=== PATIENT | male | born 2005 | race Caucasian/White ===

== ENCOUNTER 2025-03-15 03:32 | Emergency (ER) | payer MEDICAID ==
[~2025-03-15] VITALS: Ht 175.3 cm; Wt 124.0 kg
[2025-03-15 03:33] VITALS: TEMP 36.8; O2SAT 95
[2025-03-15 04:17] LABS: BASOPHILS % 0.5 % (0.0-2.0); EOSINOPHILS % 0.6 % (0.0-5.0); HEMATOCRIT. 46.3 % (42.0-52.0); HEMOGLOBIN. 15.3 g/dL (14.0-18.0); LYMPHOCYTES % 25.5 % (20.0-50.0); MEAN CORPUSCULAR HEMOGLOBIN 27.8 pg (28.0-32.0); MEAN CORPUSCULAR VOLUME 84.1 fL (80.0-94.0); MEAN PLATELET VOLUME 9.4 fl (7.4-10.4); MONOCYTES % 11.1 % (2.0-8.0); NEUTROPHILS % 62.3 % (40.0-76.0); PLATELET 201 x1000/uL (130-400); RED BLOOD CELL COUNT 5.51 mill/uL (4.7-6.1); RED CELL DISTRIBUTION WIDTH 13.4 % (11.6-14.6); WHITE BLOOD COUNT 6.8 x1000/uL (4.5-11.0)
[2025-03-15 04:34] LABS: CHLORIDE 110 mEq/L (98-107); POTASSIUM 3.6 mEq/L (3.5-5.1); SODIUM 143 mEq/L (136-145)
[2025-03-15 04:35] LABS: CALCIUM 9.6 mg/dL (8.7-10.4); CARBON DIOXIDE 29 mEq/L (21-32)
[2025-03-15 04:40] LABS: CREATININE 0.9 mg/dL (0.6-1.3); GLUCOSE 110 mg/dL (70-105); UREA NITROGEN BLOOD 9 mg/dL (9-23)
[2025-03-15 04:42] LABS: ALANINE AMINOTRANSFERASE 64 IU/L (10-49); ALBUMIN 4.5 g/dL (3.2-4.8); ASPARTATE AMINOTRANSFERASE 27 IU/L (<34); BILIRUBIN DIRECT 0.2 mg/dL (<=3.0); BILIRUBIN TOTAL 0.4 mg/dL (0.1-1.0); PROTEIN TOTAL 7.2 g/dL (6.0-8.3)
[2025-03-15 04:59] LABS: CLARITY URINE CLEAR (CLEAR); COLOR URINE YELLOW (YELLOW); GLUCOSE URINE NEGATIVE (NEGATIVE); KETONES URINE TRACE (NEGATIVE); LEUKOCYTE ESTERASE URINE NEGATIVE (NEGATIVE); NITRITE URINE NEGATIVE (NEGATIVE); OCCULT BLOOD URINE NEGATIVE (NEGATIVE); PH URINE 6.5 (4.5-8.0); PROTEIN URINE NEGATIVE (NEGATIVE); SPECIFIC GRAVITY URINE 1.021 (1.005-1.030)
[2025-03-15 05:46] VITALS: BP 149/81; PULSE 85; RESP 18; O2SAT 96
== END 2025-03-15 06:23 | disposition home or self-care (01) ==
LOC: ER 03:32
DX: R10.32 Left lower quadrant pain (principal); Z88.5 Allergy status to narcotic agent
CPT/HCPCS: 36415; 80048; 80076; 81003; 85025; 99283

== ENCOUNTER 2025-04-08 21:02 | Emergency (ER) | payer MEDICAID ==
[~2025-04-08] VITALS: Ht 177.8 cm; Wt 135.0 kg
[2025-04-08 21:18] VITALS: BP 126/80; PULSE 102; RESP 16; TEMP 36.8; O2SAT 99
[2025-04-08] MEDS: ALPRAZOLAM 0.25 MG TABLET PO ONE (23:52)
== END 2025-04-09 00:02 | disposition home or self-care (01) ==
LOC: ER 21:02
DX: F41.9 Anxiety disorder, unspecified (principal); Z88.5 Allergy status to narcotic agent
CPT/HCPCS: 93005; 99283

== ENCOUNTER 2025-06-10 02:45 | Emergency (ER) | payer MEDICAID ==
[~2025-06-10] VITALS: Ht 175.3 cm; Wt 96.0 kg
[2025-06-10 02:47] VITALS: TEMP 37; O2SAT 99
[2025-06-10] MEDS: METOCLOPRAMIDE HCL 10MG TABLET PO ONE (03:55)
[2025-06-10] MEDS: KETOROLAC 15MG/ML VIAL IM ONE (03:55)
[2025-06-10] MEDS ORDERED: GUAI-450 MT (04:16)
[2025-06-10 04:35] VITALS: BP 134/73; PULSE 68; RESP 14; O2SAT 100
== END 2025-06-10 04:37 | disposition home or self-care (01) ==
LOC: ER 02:45
DX: B34.9 Viral infection, unspecified (principal); R51.9 Headache, unspecified; F41.9 Anxiety disorder, unspecified; Z88.5 Allergy status to narcotic agent
CPT/HCPCS: 99283; 96372; J1885; J8597